=== PATIENT | female | born 1975 | race Caucasian/White ===

== ENCOUNTER 2023-10-17 14:23 | Emergency (ER) | payer OTHER, SELFPAY ==
[2023-10-17 14:28] VITALS: BP 131/62; PULSE 111; RESP 16; TEMP 36.8; O2SAT 99
--- NOTE | 2023-10-17 15:55 | ED.SKABFB ---
HPI - Skin/Abscess/Foreign Bdy General Chief complaint: Skin/Abscess/Foreign Body Stated complaint: rash to arms History of Present Illness HPI narrative: 48-year-old female with history of schizophrenia presents to the emergency department for a rash to her right elbow flexural crease for several weeks. Patient states the rash started to her left Flexural crease and then self-resolved and is now appearing on the right. She has never had this happen before. She states it is not itchy, does not painful. She denies fever, drainage. She does not have lesions anywhere else. Related Data Allergies Allergy/AdvReac Type Severity Reaction Status Date / Time No Known Allergies Allergy Unknown Unverified 10/17/23 14:30 Review of Systems Review of Systems: All systems reviewed & are unremarkable except as noted in HPI and below Exam Narrative: GENERAL: Well-appearing, well-nourished, and in no acute distress. HEAD: Normocephalic, atraumatic. ENT: Nares clear, no rhinorrhea or epistaxis. Mucous membranes moist. NECK: Supple. CHEST: Clear to auscultation. No respiratory distress. HEART: Regular rate and rhythm. No murmur heard. Normal peripheral pulses. EXTREMITIES: Normal range of motion. No edema. SKIN: Hyperkeratotic and xerotic skin to the right elbow flexural crease. No warmth or erythema, no drainage. No vesicles. Negative Nikolsky sign. NEURO: No focal deficits. Alert and oriented x3 Course Vital Signs Vital signs: Vital Signs Temperature 98.2 F 10/17/23 14:28 Pulse Rate 111 H 10/17/23 14:28 Respiratory Rate 16 10/17/23 14:28 Blood Pressure 131/62 10/17/23 14:28 Pulse Oximetry 99 10/17/23 14:28 Oxygen Delivery Room Air 10/17/23 14:28 Temperature 98.2 F 10/17/23 14:28 Pulse Rate 111 H 10/17/23 14:28 Respiratory Rate 16 10/17/23 14:28 Blood Pressure 131/62 10/17/23 14:28 Pulse Oximetry 99 10/17/23 14:28 Oxygen Delivery Room Air 10/17/23 14:28 MDM - Skin/Abscess/Foreign Bdy MDM Narrative Medical decision making narrative: 48-year-old female with history of schizophrenia presents to the emergency department for a rash to her right elbow Flexeril region for several weeks. Triage vital significant for tachycardia 111. She does appear anxious on exam. Exam is significant for hyperkeratotic and xerotic lesion to the flexor aspect of the right elbow consistent with eczema. She has no other rashes throughout her body. Negative Nikolsky.. No vesicles. Will start her on hydrocortisone cream and provide dermatology referral. Strict ED return precautions discussed. She is agreeable with the plan verbalized understanding. Discharged in stable condition. Discharge Plan Discharge Clinical Impression: Eczema Qualifiers: Eczema type: flexural Qualified Code(s): L20.82 - Flexural eczema Patient Disposition: Home, Self-Care Condition: Stable Instructions: Antibiotic Form, Eczema (ED) Additional Instructions: Your evaluated in the emergency department for rash to her right elbow. This is consistent with eczema. Please use the steroid cream as directed and follow-up with the fitness instructor. Return to the emergency department if you develop a fever, significantly worsening rash, other concerning symptoms. [facility]: [phone] Prescriptions: New hydrocortisone 2.5 % cream 1 applic topical BID PRN (Reason: rash) Qty: 28 0RF Rx Instructions: Do not use for more than 2 weeks at a time Follow-up/Referrals: [facility] [Primary Care Provider] -
== END 2023-10-17 16:13 | disposition home or self-care (01) ==
LOC: ANHED 16:11
PROVIDERS: Emergency Provider Physician Assistant
DX: L20.82 Flexural eczema (principal); F20.9 Schizophrenia, unspecified
CPT/HCPCS: 99283